=== PATIENT | male | born 1945 | race Caucasian/White ===

== ENCOUNTER 2019-01-12 05:51 | Day surgery (SDC) | payer BC ==
[2019-01-12] MEDS ORDERED: PROPOFOL 10 MG/ML VIAL IV ONE (05:52)
[2019-01-12] MEDS ORDERED: LIDOCAINE 2% MDV (20MG/ML) 20ML VIAL IV ONE (05:52)
[2019-01-12] MEDS ORDERED: FENTANYL PF 100MCG/2ML VIAL IV ONE (05:52)
[2019-01-12] MEDS ORDERED: MIDAZOLAM HCL 2MG/2ML VIAL IV ONE (05:52)
[2019-01-12] MEDS ORDERED: RINGERS SOLUTION,LACTATED 1,000 ML IV ONE (06:49)
[2019-01-12] MEDS ORDERED: LIDOCAINE 1% W/EPI 1:200,000 MPF 30ML SQ ONE (08:00)
[2019-01-12] MEDS ORDERED: DEXAMETHASONE PRESERVATIVE FREE 10MG/ML VIAL IM ONE (08:00)
[2019-01-12] MEDS ORDERED: BUPIVACAINE 0.5% W/EPI MPF 30 ML VIAL SQ ONE (08:00)
[2019-01-12] MEDS ORDERED: BUPIVACAINE 0.5% (5MG/ML) PF 30ML VIAL IM ONE (08:00)
--- NOTE | 2019-01-13 06:56 | Operative Note - [place] ---
DATE OF SURGERY: 01/12/2019 PREOPERATIVE DIAGNOSIS: Post lumbar laminectomy syndrome, ICD-10 code M96.1 with lumbar spondylosis without myelopathy, ICD-10 code M47.816. OPERATION: FLUOROSCOPICALLY GUIDED INFILTRATION BLOCK BILATERAL LUMBAR FACETS L3-L4, L4-L5, AND L5-S1. SURGEON: Roe Turcios D.O. INDICATION: This patient presents with history of decompression laminectomy and primary back pain. Examination shows tenderness lumbar spine. Range of motion does cause pain to the low back with extension. Diagnostics show decompression laminectomy L4-L5 and L5-S1 and diffuse spondylotic change. PROCEDURE: Intravenous line, vital sign monitoring, IV sedation, prepped and draped in sterile technique. Under imaging the facet levels in the lumbar spine in the area of pain were identified and marked at L3-L4, L4-L5 and L5-S1, each one of these points on the skin were infiltrated with a 22-gauge 3.5 inch needle in the facet. 1 ml of 0.5% Marcaine and dexamethasone was injected and this was repeated bilaterally. All areas were cleaned. Topical antibiotic and sterile dressing applied. Will monitor and evaluate. JOB NUMBER: [id number] [facility]
== END 2019-01-12 08:36 | disposition home or self-care (01) ==
LOC: SUR 05:51
PROVIDERS: ATTEND Pain Medicine Interventional Pain Medicine
DX: M96.1 Postlaminectomy syndrome, not elsewhere classified (principal); M47.816 Spondylosis without myelopathy or radiculopathy, lumbar region; J44.9 Chronic obstructive pulmonary disease, unspecified; I10 Essential (primary) hypertension; E11.9 Type 2 diabetes mellitus without complications; Z79.4 Long term (current) use of insulin; Z96.41 Presence of insulin pump (external) (internal); G25.0 Essential tremor; K21.9 Gastro-esophageal reflux disease without esophagitis; F03.90 Unspecified dementia, unspecified severity, without behavioral disturbance, psychotic disturbance, mood disturbance, and anxiety
CPT/HCPCS: 64493; 64494; 64495; 01992; J1100; J3010; J7120